=== PATIENT | female | born 1980 | race Two or more races ===

== ENCOUNTER 2019-01-17 15:46 | Emergency (ER) | payer MEDICAID ==
[~2019-01-17] VITALS: Ht 152.4 cm; Wt 74.0 kg
[2019-01-17 16:29] VITALS: BP 115/63
== END 2019-01-17 21:51 | disposition left against medical advice (07) ==
LOC: ER 15:46
DX: R10.9 Unspecified abdominal pain (principal); Z53.21 Procedure and treatment not carried out due to patient leaving prior to being seen by health care provider